=== PATIENT | male | born 1970 | race Caucasian/White ===

== ENCOUNTER → 2016-03-26 | Outpatient (CLI) | payer BC ==
[~2016-03-26] MED LIST: BACTRIM DS 8001 TAB PO; FLEXERIL10 MG PO; HYDROCODONE1 TABLET PO; NOMEDS *
--- NOTE | 2016-03-26 20:12 | RADIOLOGY REPORT PS360 ---
LUMBAR SPINE 5 VIEWS ORDERING PHYSICIAN : Maykel Sanchez MD PATIENT AGE: 45 years GENDER: Male INDICATION: LOW BACK PAIN, RT SIDE Lobe back pain right side pain. Lumbar note. TECHNIQUE: Five-view lumbar spine series COMPARISON: None FINDINGS The vertebral bodies are intact.. Normal alignment bones well mineralized. No compression fractures Mild disc space narrowing L5/S1. Other lumbar disc spaces are well-maintained and normal Early lumbar spondylosis with mild posterior hypertrophic ridging L5/S1 and L3/4. . Pedicles, transverse processes, SI joints intact. Initially question possible pars defect to the right at L5 but on further review of the this is merely thinning of the pars interarticularis with no sai pars defect ----IMPRESSION: Mild degenerative changes lumbar spine. Mild disc space narrowing L5/S1 .. Subtle posterior hypertrophic ridging at L5/S1 L3/4 reflecting early degenerative disc changes Lumbar vertebral bodies intact.
== END ==
LOC: RAD 12:20
DX: M54.41 Lumbago with sciatica, right side (principal)